=== PATIENT | female | born 2000 | race Two or more races ===

== ENCOUNTER 2024-04-09 12:02 | Inpatient (IN) | payer MEDICAID ==
[2024-04-09] VITALS (17 sets, daily range): BP systolic 120–164; BP diastolic 60–99; PULSE 68–103; RESP 16–19; TEMP 97.6–97.9; O2SAT 96–100
[~2024-04-09] VITALS: Ht 170.2 cm; Wt 63.2 kg
[~2024-04-09 12:02] MED LIST: LABETALOL HCL 5 MG/ML ML 20ML VIAL IV ONE
[2024-04-09] MEDS: MAGNESIUM SULFATE 40MG/ML 1,000 ML IV ONE (12:24)
[2024-04-09] MEDS: MAGNESIUM SULFATE 100 ML IV ONE ×2 (12:30→12:51)
[2024-04-09] MEDS ORDERED: PHISODERM TOP SOLN 240ML BTL TOP PRN (12:45)
[2024-04-09] MEDS: LACT. RINGERS/OXYTOCIN 20UNITS 500 ML IV ONE ×2 (12:45→13:15)
[2024-04-09] MEDS ORDERED: WITCH HAZEL-GLYCERIN PAD TOP PRN (12:45)
[2024-04-09] MEDS ORDERED: LIDOCAINE 2%HCL (LOCAL ANESTH.) INJ 20ML MDV IJ PRN (12:45)
[2024-04-09] MEDS ORDERED: DERMOPLAST 60ML BOTTLE TOP PRN (12:45)
[2024-04-09] MEDS: ONDANSETRON HCL 4 MG/2 ML VIAL ONE (12:55)
[2024-04-09] MEDS: ONDANSETRON HCL 4 MG/2 ML VIAL IV ONE (13:00)
[2024-04-09] MEDS: MAGNESIUM SULFATE 40MG/ML 1,000 ML IV SCH (13:14)
[2024-04-09 13:16] LABS: Basophils # (auto) 0 10 ^3/uL (0-0.2); Basophils % (auto) 0.4 % (0.0-2.0); Eosinophils # (auto) 0.1 10 ^3/uL (0-0.8); Eosinophils % (auto) 0.4 % (0.0-7.0); Hematocrit 30.5 % (36.0-46.0); Hemoglobin 9.8 g/dL (12.2-16.2); Lymphocytes % (auto) 16.2 % (10.0-50.0); Mean Corpuscular Hemoglobin 27.4 pg (28.0-32.0); Mean Corpuscular Hgb Conc. 32.2 g/dL (32.0-36.0); Monocytes # (auto) 0.9 10 ^3/uL (0-1.3); Monocytes % (auto) 6.9 % (0.0-12.0); Neutrophils # (auto) 9.6 10 ^3/uL (1.6-8.6); Neutrophils % (auto) 76.1 % (37.0-80.0); Nucleated Red Blood Cells % 0.1 %; Platelet Count (auto) 325 10^3/uL (140-450); Red Blood Cells 3.59 10^6/uL (4.0-5.20); Red Cell Distribution Width 15.5 % (11.8-14.3); White Blood Cell 12.6 10^3/uL (4.4-10.8)
[2024-04-09 13:19] LABS: Urine Bacteria MOD /hpf (None Seen); Urine Blood Negative /uL (Negative); Urine Budding Yeast OCCASIONAL /hpf (None Seen); Urine Clarity Turbid (Clear); Urine Color Colorless (Yellow); Urine Protein, UAD Negative (Negative); Urine Specific Gravity 1.007 (1.001-1.035); Urine Squamous Epithelial Cell MOD /hpf (<5); Urine Urobilinogen Normal (Negative); Urine WBC 3 /HPF (0-5); Urine pH 6.5 (5.0-9.0)
[2024-04-09] MEDS ORDERED: MORPHINE SULF PF 5 MG/10 ML VIAL ONE (13:23)
[2024-04-09] MEDS ORDERED: fentaNYL CITRATE 100 MCG/2 ML VL ONE (13:23)
[2024-04-09] MEDS ORDERED: GLYCOPYRROLATE 0.2 MG/ML 1ML VIAL ONE (13:26)
[2024-04-09] MEDS ORDERED: ONDANSETRON HCL 4 MG/2 ML VIAL ONE (13:26)
[2024-04-09] MEDS ORDERED: oxyTOCIN 10 UNIT/ML 10ML VIAL ONE (13:26)
[2024-04-09] MEDS ORDERED: ceFAZolin 1GM VL ONE (13:26)
[2024-04-09 13:28] LABS: Albumin 4.1 g/dL (3.2-4.8); Anion Gap 10 (5-15); Aspartate Aminotransferase 14 U/L (13-40); Calcium 9.5 mg/dL (8.7-10.4); Carbon Dioxide 21 mmol/L (20-31); Chloride 106 mmol/L (98-107); Glucose 88 mg/dL (74-106); INR 0.92 (0.9-1.15); Partial Thromboplastin Time 27.6 SEC (24.5-34.5); Potassium 3.8 mmol/L (3.5-5.1); Prothrombin Time 9.8 sec (9.3-11.8); Sodium 137 mmol/L (136-145); Total Protein 6.8 g/dL (5.7-8.2); Uric Acid 3.5 mg/dL (3.1-7.8)
[2024-04-09 13:29] LABS: Bilirubin, Total 1.1 mg/dL (0.2-1.0)
[2024-04-09 13:34] LABS: Amphetamine Screen, Urine Neg (NEGATIVE); Barbiturate Scree,Urine Neg (NEGATIVE); Benzodiazephine Screen, Urine Neg (NEGATIVE); Cannabinoid Screen, Urine Neg (NEGATIVE); Cocaine Screen, Urine Neg (NEGATIVE); Opiate Scree,Urine Neg (NEGATIVE); Phencyclidine Screen, Urine Neg (NEGATIVE)
[2024-04-09 13:46] LABS: Alanine Aminotransferase < 9 U/L (7-40); Alkaline Phosphatase 230 U/L (46-116); BUN/Creatinine Ratio 11.9 (10.0-20.0); Blood Urea Nitrogen < 5 mg/dL (9-23)
[2024-04-09] MEDS ORDERED: DexAMETHasone SOD PHOS 10MG/1ML VIAL INJ IV PRN (14:45)
[2024-04-09] MEDS ORDERED: ONDANSETRON HCL 4 MG/2 ML VIAL IV PRN (14:45)
[2024-04-09] MEDS ORDERED: NALOXONE HCL 0.4 MG/ML VIAL IV PRN (14:45)
--- NOTE | 2024-04-09 15:01 | DVHPN2 ---
Visit Coding OBGYN Date of Service: Apr 09, 2024 Billing Provider: HARRY HARDWICK DO PERINATAL INSTRUCTOR Common Visit Codes: [id number] OBS CARE (HIGH) PERINATAL INSTRUCTOR Procedure Codes: [id number] OB CARE, DEL HARRY HARDWICK DO Apr 09, 2024 15:01
--- NOTE | 2024-04-09 15:07 | DVHHP2 ---
OB CC & HPI Date Date of Admission: Apr 09, 2024 Patient Identification: : 1 Para: 0 EGA: 39.2 Chief Complaints: Reason for admission: section Indication for induction: medical complication Other reason for admission: Pre-eclampsia with severe features (severe HTN) History of Present Complaints 23y G1Po sent to L&D by Dr. Nicolas's office due to severely elevated BP's in office today. Patient denies headache, scotomata, epigastric pain. Denies drug use. has been uncomplicated. Past Medical History Cardiac: No pertinent Hx Pulmonary: No pertinent Hx Central Nervous System: No pertinent Hx GI: No pertinent Hx Hemotology/Oncology: No pertinent Hx Hepatobiliary: No pertinent Hx Psychiatric: No pertinent Hx Musculoskeletal: No pertinent Hx Rheumotologic: No pertinent Hx Infectious Disease: No peritnent Hx ENT: No pertinent Hx Renal/: No pertinent Hx Endocrine: No pertinent Hx Dermatology: No pertinent Hx Past Surgical History: No pertinent Hx OB History OB History Care: None Ultrasounds: Normal mid trimester US Obstetrical Complications: Pre-eclampsia Allergies: Coded Allergies: NO KNOWN ALLERGIES (Unverified , 04/09/24) Current Medications Current Medications Medications (Trade) Dose Ordered Sig/Yumiko Route PRN Reason Start Time Stop Time Status Last Admin Magnesium Sulfate 1,000 ml @ 50 mls/hr Q20H IV 04/09/24 12:30 04/09/24 13:14 Lactated Ringer's 1,000 ml @ 75 mls/hr [id number] IV 04/09/24 12:30 Witch Ember (Tucks) 1 pad PRN PRN TOP PERINEAL AREA DISCOMFORT 04/09/24 12:45 Sodium Lauryl Sulfate (Phisoderm) 240 ml PRN PRN TOP PERINEAL AREA DISCOMFORT 04/09/24 12:45 Benzocaine (Dermoplast) 1 applic PRN PRN TOP PERINEAL AREA DISCOMFORT 04/09/24 12:45 Lidocaine HCl (Xylocaine) 20 ml ONCE PRN IJ PERINEAL AREA DISCOMFORT 04/09/24 12:45 Diphenhydramine HCl (Benadryl Injection) 25 mg Q4HP PRN IV FOR ITCHING 04/09/24 14:45 UNV Ondansetron HCl (Zofran) 4 mg Q4HP PRN IV NAUSEA / VOMITING 04/09/24 14:45 UNV Naloxone HCl (Narcan) 0.2 mg Q5M PRN IV For respirations < than 10/min 04/09/24 14:45 04/09/24 14:51 UNV Dexamethasone Sodium Phosphate (Decadron Injection) 10 mg SHEAR GRINDER OPERATOR PRN IV FOR ITCHING 04/09/24 14:45 04/09/24 14:46 UNV Ketorolac Tromethamine (Toradol Injection) 30 mg Q6HP PRN IV MODERATE PAIN (4-6 PAIN SCALE) 04/09/24 14:45 04/14/24 14:44 UNV Review of Systems Constitutional: No symptom reported Ears, Nose, & Throat: No symptom reported Eyes: No symptom reported Pulmonary/Respiratory: No symptom reported Cardiovascular: No symptom reported Gastrointestinal: No symptom reported Genitourinary: No symptom reported Musculoskeletal: No symptom reported Skin: No symptom reported Psychiatric: No symptom reported Endocrine: No symptom reported Hemotologic/Lymphatic: No symptom reported OB Admission Exam Physical Exam Vitals: Vital Signs Date Time Temp Pulse Resp B/P (MAP) Pulse Ox O2 Delivery O2 Flow Rate FiO2 04/09/24 14:41 Nasal Cannula 3.0 99 HEENT: NCAT Heart: Rhythm Normal Lungs: Clear Abdomen: Gravid Extremities: Normal Reflexes: Normal Pelvic Exam: Deferred Heart Rate: 130's Accelerations: Accelerations Present Decelerations: No Decelerations Manager Privacy Variability: Average (6-25) Contractions on Admission: >10 Minutes Apart Intensity: Mild OB Plan Plan Admitting Diagnosis: 23yo G1Po, IUP 39+ weeks, Severe Pre Eclampsia by BP criteria Plan: Section Other Plan: Remote from delivery Magnesium sulfate and IV Labetalol protocol initiated for severe HTN urgency, difficult to control BP Patient with unfavorable cervix Consented for C/Section delivery due to indications R/B/A of surgery discussed and informed consent obtained. Visit Coding OBGYN Date of Service: Apr 09, 2024 Billing Provider: HARRY HARDWICK DO [facility] PHYSICIAN Common Visit Codes: [id number] OBS CARE (HIGH) HARRY HARDWICK DO Apr 09, 2024 15:07
--- NOTE | 2024-04-09 15:12 | DVHOP ---
DATE OF SURGERY: 04/09/2024 PREOPERATIVE DIAGNOSES: * Term intrauterine at 39+ weeks. * Severe preeclampsia. FINAL DIAGNOSES: * Term intrauterine at 39+ weeks. * Severe preeclampsia. PROCEDURE PERFORMED: Non-elective primary low transverse section via Pfannenstiel skin incision. SURGEON: Rajesh Malave DO DIRECTOR OF TRAINING: Deborah Hayward M.D. PGY-1, [facility]. TYPE OF ANESTHESIA: Spinal. ANESTHESIOLOGIST: Sujey Crum M.D. DESCRIPTION OF FINDINGS: Delivery of a liveborn female, cephalic presentation, occiput posterior, weight 8 pounds 2 ounces, scores of 7 and 8, clear amniotic fluid. Normal placenta, 3-vessel umbilical cord, two-layer uterine closure. Normal bilateral fallopian tubes, ovaries and placenta as described above. TECHNICAL PROCEDURE: After informed consent was obtained, the patient was taken to the operating room where her spinal anesthesia was found to be adequate. She was placed in the supine position with a slight leftward tilt. She was sterilely prepped and draped in the usual sterile fashion. A Pfannenstiel skin incision was made with the scalpel. The incision was developed sharply to the underlying layer of fascia and peritoneum. Entry into the peritoneal cavity was performed bluntly. The peritoneal incision was extended superiorly and inferiorly with good visualization of the bladder. The Bryan O retractor was placed into the incision. Using a second scalpel, the lower uterine segment was incised in a low transverse fashion and incision extended laterally. The amniotic fluid membranes were ruptured. The fluid was clear. The baby was found to be in the direct occiput posterior position. The baby was delivered atraumatically. After delivery of the infant, the nose and mouth were suctioned. The cord was clamped and cut and the baby handed off to waiting pediatric team. Cord blood and cord gas were obtained. The placenta was spontaneously delivered. The uterus was exteriorized and cleared of all clots and debris using moist laparotomy sponges. The uterine incision was repaired with #1 Vicryl in continuous running locking fashion. A second layer of #1 PDS was used to imbricate the uterine incision with good tissue approximation and hemostasis obtained. The cul-de-sac and pericolic gutters were cleared of all clots and debris. The uterus was returned to the abdomen. Hemostasis was confirmed. The abdomen was irrigated with sterile water. At this point, all instrumentation was removed from the patient's abdomen. The peritoneal layer was not closed. The rectus fascia was closed using #1 Stratafix PDS. It was closed in continuous running fashion with good tissue approximation. The subcutaneous tissue was approximated in interrupted fashion using 3-0 plain gut and the skin closed in subcuticular fashion using 3-0 Monocryl with a Stratafix suture. The Sylke sterile dressing was then placed over the incision. The patient tolerated the procedure well. Sponge, lap and needle counts were correct x4. INTRAOPERATIVE COMPLICATIONS: None. ESTIMATED BLOOD LOSS: 500 mL POSTOPERATIVE CONDITION: Stable. SPECIMENS: Cord blood, cord gas and placenta. MEDICATIONS: The patient received 2 grams of Ancef prior to skin incision and IV magnesium sulfate prior to delivery and IV labetalol for severe hypertension. PROGNOSIS: Guarded due to severe preeclampsia. DO LORETO [place] TID: [id number] RECEIPT: [id number]
[2024-04-09] MEDS: LACTATED RINGER'S 1,000 ML IV SCH (16:07)
[2024-04-09] MEDS: diphenhdrAMINE HCL 50 MG/1 ML VL IV PRN (16:27)
[2024-04-09] MEDS: LABETALOL HCL 200 MG TAB PO PRN (17:35)
[2024-04-09] MEDS: KETOROLAC TROMETH 30 MG/ML 1ML VIAL IV PRN (17:41)
[2024-04-09] MEDS: LABETALOL HCL 200 MG TAB PO ONE (19:15)
[2024-04-09] MEDS: LABETALOL HCL 200 MG TAB ONE (19:37)
[2024-04-09 23:01] LABS: Protein, Urine 18.5 mg/dL (1-14)
[2024-04-09 23:04] LABS: Creatinine, Urine 53.61 mg/dL (30.0-125.0); Urine Protein/Creatinine Ratio 0.35
[2024-04-09] MEDS: ACETAMINOPHEN IV 1000 MG/100ML (10MG/ML) IV PRN (23:39)
[2024-04-10] VITALS (17 sets, daily range): BP systolic 96–170; BP diastolic 41–90; PULSE 77–93; RESP 16–18; TEMP 97.7–98.3; O2SAT 97–100
[2024-04-10 06:41] LABS: Basophils # (auto) 0 10 ^3/uL (0-0.2); Basophils % (auto) 0.1 % (0.0-2.0); Eosinophils # (auto) 0 10 ^3/uL (0-0.8); Hemoglobin 8.4 g/dL (12.2-16.2); Red Cell Distribution Width 15.7 % (11.8-14.3)
[2024-04-10 06:44] LABS: Hematocrit 25.9 % (36.0-46.0); Lymphocytes # (auto) 1.9 10 ^3/uL (0.4-5.4); Lymphocytes % (auto) 8.3 % (10.0-50.0); Mean Corpuscular Hemoglobin 27.7 pg (28.0-32.0); Mean Corpuscular Hgb Conc. 32.4 g/dL (32.0-36.0); Mean Corpuscular Volume 85.6 fL (80.0-100.0); Monocytes % (auto) 8.8 % (0.0-12.0); Neutrophils # (auto) 18.6 10 ^3/uL (1.6-8.6); Neutrophils % (auto) 82.8 % (37.0-80.0); Platelet Count (auto) 337 10^3/uL (140-450); Red Blood Cells 3.02 10^6/uL (4.0-5.20); White Blood Cell 22.5 10^3/uL (4.4-10.8)
[2024-04-10 07:07] LABS: Albumin 3.6 g/dL (3.2-4.8); Anion Gap 10 (5-15); Aspartate Aminotransferase 19 U/L (13-40); Carbon Dioxide 21 mmol/L (20-31); Chloride 101 mmol/L (98-107); Glucose 104 mg/dL (74-106); Potassium 4.2 mmol/L (3.5-5.1)
[2024-04-10 07:08] LABS: Alanine Aminotransferase < 9 U/L (7-40); Alkaline Phosphatase 189 U/L (46-116); BUN/Creatinine Ratio 8.2 (10.0-20.0); Bilirubin, Total 0.8 mg/dL (0.2-1.0); Blood Urea Nitrogen < 5 mg/dL (9-23); Calcium 7.9 mg/dL (8.7-10.4); Sodium 132 mmol/L (136-145)
[2024-04-10] MEDS ORDERED: ACETAMINOPHEN IV 1000 MG/100ML (10MG/ML) IV PRN ×2 (07:30→09:15)
--- NOTE | 2024-04-10 07:33 | DVHPN2 ---
Progress Note Date Seen: Apr 10, 2024 Subjective POD#1 s/p 1' C/S for pre-eclampsia w/ severe features S: feels better. No epigastric pain, visual changes or headache.Lochia mild vital signs Vital Sign Date Time Temp Pulse Resp B/P (MAP) Pulse Ox O2 Delivery O2 Flow Rate FiO2 04/10/24 06:52 98.3 77 18 135/75 (95) 99 98.3 04/10/24 06:50 Room Air 04/09/24 14:35 0 04/09/24 14:35 99 Total Intake and Output 04/09/24 04/09/24 04/10/24 15:00 23:00 07:00 Output Total 2150 ml 1525 ml Balance -2150 ml -1525 ml medications Current Medications Medications Dose Ordered Sig/Yumiko Route Start Time Stop Time Status Last Admin Dose Admin Magnesium Sulfate 1,000 ml @ 50 mls/hr Q20H IV 04/09/24 12:30 04/09/24 13:14 50 MLS/HR Lactated Ringer's 1,000 ml @ 75 mls/hr [id number] IV 04/09/24 12:30 04/09/24 16:07 75 MLS/HR Witch Ember 1 pad PRN PRN TOP 04/09/24 12:45 Sodium Lauryl Sulfate 240 ml PRN PRN TOP 04/09/24 12:45 Benzocaine 1 applic PRN PRN TOP 04/09/24 12:45 Lidocaine HCl 20 ml ONCE PRN IJ 04/09/24 12:45 Diphenhydramine HCl 25 mg Q4HP PRN IV 04/09/24 14:45 04/09/24 16:27 25 MG Ondansetron HCl 4 mg Q4HP PRN IV 04/09/24 14:45 Ketorolac Tromethamine 30 mg Q6HP PRN IV 04/09/24 14:45 04/14/24 14:44 04/10/24 06:20 30 MG Labetalol HCl 300 mg Q12HR@0800,2000 PO 04/10/24 08:00 Acetaminophen 1,000 mg ONCE PRN IV 04/09/24 23:30 04/10/24 23:29 04/09/24 23:39 1,000 MG Acetaminophen 1,000 mg [id number] PRN IV 04/10/24 07:30 04/10/24 07:31 UNV laboratory and microbiology Laboratory Tests 04/10/24 06:03 Test 04/10/24 06:03 Range/Units Serum Glucose 104 74-106 mg/dL Objective O: AFVSS Chest: heart and lung sounds normal. Abd soft, non-tender, fundus firm, BS, no rebound or guarding, Incision - dressing and incision clean, dry, intact Ext Neg Homans, Non-tender, edema Lochia - minimal Labs Reviewed Assessment/Plan POD#1 s/p 1' C/S for severe Pre-E BP's controlled on oral Labetalol Plan: Continue MagSO4 until x 24hr Supportive care SCD's Regular diet. Plan discussed with: Patient Visit Coding OBGYN Date of Service: Apr 10, 2024 Billing Provider: HARRY HARDWICK DO SCHOLASTIC APTITUDE TEST GRADER Common Visit Codes: [id number] INP/OBS CARE(HIGH) HARRY HARDWICK DO Apr 10, 2024 07:33
[2024-04-10] MEDS ORDERED: IRON SUCROSE COMPLEX 110 ML IV SCH (07:45)
[2024-04-10] MEDS ORDERED: LABETALOL HCL 200 MG TAB PO SCH (08:00)
[2024-04-10 08:07] LABS: RPR Non Reactive (Non Reactive)
[2024-04-10] MEDS: LABETALOL HCL 200 MG TAB PO SCH (09:01)
[2024-04-10] MEDS: IRON SUCROSE COMPLEX 110 ML IV SCH (09:54)
[2024-04-10] MEDS: ACETAMINOPHEN IV 1000 MG/100ML (10MG/ML) IV PRN (09:58)
[2024-04-10 12:07] LABS: Rubella Antibodies, IgG 2.07 index (Immune >0.99)
[2024-04-10] MEDS: HYDROcodone-ACET 5/325MG TAB PO PRN (13:36)
[2024-04-10] MEDS: IBUPROFEN 800 MG TAB PO PRN (18:26)
[2024-04-10] MEDS: SIMETHICONE 80 MG CHEWABLE TABLET PO SCH (18:28)
[2024-04-10] MEDS: DOCUSATE SOD 100 MG CAP PO SCH (22:27)
[2024-04-10] MEDS: hydrALAZINE HCL 20 MG/ML VL IV PRN (23:10)
[2024-04-11 03:12] VITALS: BP 155/80; PULSE 82; RESP 18; TEMP 98.2; O2SAT 98
--- NOTE | 2024-04-11 06:29 | DVHPN2 ---
Progress Note Date Seen: Apr 11, 2024 Subjective S: Lochia minimal. Advancing diet well tolerated. Ambulating and voiding well w/o feeling dizzy or lightheaded. Pain relieved with analgesics. Passing flatus but no BM yet. Formula feeding, no breast fullness or engorgement vital signs Vital Sign Date Time Temp Pulse Resp B/P (MAP) Pulse Ox O2 Delivery O2 Flow Rate FiO2 04/11/24 03:12 98.2 82 18 155/80 (105) 98 98.2 04/10/24 18:30 Room Air 04/09/24 14:35 0 04/09/24 14:35 99 Total Intake and Output 04/10/24 04/10/24 04/11/24 15:00 23:00 07:00 Intake Total 240 ml Output Total 600 ml 540 ml 800 ml Balance -600 ml -300 ml -800 ml medications Current Medications Medications Dose Ordered Sig/Yumiko Route Start Time Stop Time Status Last Admin Dose Admin Pippacynthia Ember 1 pad PRN PRN TOP 04/09/24 12:45 Sodium Lauryl Sulfate 240 ml PRN PRN TOP 04/09/24 12:45 Benzocaine 1 applic PRN PRN TOP 04/09/24 12:45 Labetalol HCl 300 mg Q12HR@0800,2000 PO 04/10/24 08:00 04/10/24 19:15 Iron Sucrose 110 ml @ 110 mls/hr DAILY@1200 IV 04/10/24 09:30 04/12/24 12:59 04/10/24 09:54 Docusate Sodium 100 mg Q12HR PO 04/10/24 22:00 04/10/24 22:27 Dimethicone 80 mg QID PO 04/10/24 18:00 04/11/24 05:31 Ibuprofen 800 mg Q8HP PRN PO 04/10/24 13:15 04/11/24 02:43 Acetaminophen/ Hydrocodone Bitart 1 tab Q4HPRN PRN PO 04/10/24 13:15 Acetaminophen/ Hydrocodone Bitart 2 tab Q4HPRN PRN PO 04/10/24 13:15 04/11/24 04:41 Hydralazine HCl 5 mg Q20MP PRN IV 04/10/24 23:00 04/10/24 23:39 laboratory and microbiology Laboratory Tests 04/10/24 06:03 Test 04/10/24 06:03 Range/Units Serum Glucose 104 74-106 mg/dL Objective O: A&O x3 NAD. Afebrile, VSS Chest: heart and lung sounds normal. Breasts: Nipples intact w/o cracks or soreness Abdomen: normal BS, soft, non-tender, no rebound or guarding, fundus firm @ U- 1, Lower abdominal Incision site with Sylke on, same clean, dry and intact. No edema, erythema or induration Extremities: no edema or tenderness Lochia - minimal Assessment/Plan A/P: 23 yo now Post operative & ppd #2 s/p Primary Section for Severe pre E. Anemia. BP controlled with Labetalol doing well. Blood Type: O Rh: Positive Formula feeding Rubella Immune Plan Pain control with oral medications Bowel regimen: Increase fluid intake and fiber in diet, Laxative PRN Encourage ambulation Supportive care Plan discussed with: Patient Visit Coding OBGYN Date of Service: Apr 11, 2024 Billing Provider: MC SMITH CNM MICROBIOLOGY COORDINATOR Common Visit Codes: [id number] INP/OBS CARE(HIGH) MC SMITH CNM Apr 11, 2024 06:29
[2024-04-11 07:15] VITALS: BP 143/82; PULSE 81; RESP 18; TEMP 98.2; O2SAT 96
[2024-04-11] MEDS: FERROUS SULFATE 325mg EC TAB PO SCH (10:42)
[2024-04-11 10:44] VITALS: BP 131/68; PULSE 82; RESP 18; TEMP 98.2; O2SAT 96
[2024-04-11 19:00] VITALS: BP 168/94; PULSE 94; RESP 16; TEMP 98.5; O2SAT 99
[2024-04-11 20:00] VITALS: BP 154/79
[2024-04-11 23:00] VITALS: BP 154/86; PULSE 95; RESP 16; TEMP 98.7; O2SAT 96
[2024-04-12] VITALS (9 sets, daily range): BP systolic 136–177; BP diastolic 65–104; PULSE 79–97; RESP 16–18; TEMP 97.9–99; O2SAT 97–99
--- NOTE | 2024-04-12 04:21 | DVHPN2 ---
Progress Note Date Seen: Apr 12, 2024 Subjective S: Lochia minimal. Regular diet well tolerated. Ambulating and voiding well w/o feeling dizzy or lightheaded. Pain relieved with oral analgesics. Passing flatus but no BM yet. Formula feeding; reports no breast fulness or engorgement PP BCM Plan: Oral contraceptive pill - will start after 8 weeks . Partner in [place]. Desires and requests to be discharged today vital signs Vital Sign Date Time Temp Pulse Resp B/P (MAP) Pulse Ox O2 Delivery O2 Flow Rate FiO2 04/11/24 23:00 98.7 95 16 154/86 (108) 96 98.7 04/11/24 19:00 Room Air Total Intake and Output 04/11/24 04/11/24 04/12/24 15:00 23:00 07:00 Intake Total 240 ml 300 ml Balance 240 ml 300 ml medications Current Medications Medications Dose Ordered Sig/Yumiko Route Start Time Stop Time Status Last Admin Dose Admin [place] 1 pad PRN PRN TOP 04/09/24 12:45 Sodium Lauryl Sulfate 240 ml PRN PRN TOP 04/09/24 12:45 Benzocaine 1 applic PRN PRN TOP 04/09/24 12:45 Labetalol HCl 300 mg Q12HR@0800,2000 PO 04/10/24 08:00 04/11/24 19:53 300 MG Docusate Sodium 100 mg Q12HR PO 04/10/24 22:00 04/11/24 19:49 100 MG Dimethicone 80 mg QID PO 04/10/24 18:00 04/11/24 19:49 80 MG Ibuprofen 800 mg Q8HP PRN PO 04/10/24 13:15 04/11/24 23:41 800 MG Acetaminophen/ Hydrocodone Bitart 1 tab Q4HPRN PRN PO 04/10/24 13:15 Acetaminophen/ Hydrocodone Bitart 2 tab Q4HPRN PRN PO 04/10/24 13:15 04/11/24 19:50 2 TAB Hydralazine HCl 5 mg Q20MP PRN IV 04/10/24 23:00 04/10/24 23:39 5 MG Ferrous Sulfate 325 mg BIDWM PO 04/11/24 11:00 04/11/24 19:49 325 MG laboratory and microbiology Laboratory Tests 04/10/24 06:03 Test 04/10/24 06:03 Range/Units Serum Glucose 104 74-106 mg/dL Objective O: A&O x3 NAD. Afebrile, BP not in well controlled range on Labetalol 300mg twice daily, other vital signs stable Chest: heart and lung sounds normal. Breasts: Nipples intact w/o cracks or soreness Abdomen: normal BS, soft, non-tender, no rebound or guarding, fundus firm @ U- 1, Lower abdominal Incision site with Sylke on, same clean, dry and intact. No edema, erythema or induration Extremities: no edema or tenderness Lochia - minimal Assessment/Plan 23 yo now Post operative & ppd #3 s/p Primary Section. Pre Eclampsia, Hypertension, condition guarded; BP still elevated. Anemia Blood Type: A Rh: Positive Formula feeding Rubella Immune Pain control with oral medications Bowel regimen: Increase fluid intake and fiber in diet, Laxative PRN Discharge plan: To be re- assessed by MD whose findings will determine fitness for discharge Plan discussed with: Patient Visit Coding OBGYN Date of Service: Apr 12, 2024 Billing Provider: MC SMITH CNM RETAIL WIRELESS ASSOCIATE Common Visit Codes: [id number] INP/OBS CARE(HIGH) MC SMITH CNM Apr 12, 2024 04:21
[2024-04-12] MEDS: NIFEdipine ER 30 MG TAB PO SCH (10:05)
[2024-04-12] MEDS ORDERED: HYDR-4902 PO (16:22)
[2024-04-12] MEDS ORDERED: IBUP-1455 PO (16:22)
[2024-04-12] MEDS ORDERED: NIFE1TAB31 PO (16:22)
[2024-04-12] MEDS ORDERED: FER325T PO (16:22)
[2024-04-12] MEDS ORDERED: DOCU-265 PO (16:22)
[2024-04-12] MEDS ORDERED: LABE200T10 PO (16:22)
[2024-04-12 17:28] LABS: Basophils # (auto) 0 10 ^3/uL (0-0.2); Basophils % (auto) 0.3 % (0.0-2.0); Eosinophils # (auto) 0.2 10 ^3/uL (0-0.8); Eosinophils % (auto) 1.5 % (0.0-7.0); Hematocrit 30.8 % (36.0-46.0); Hemoglobin 9.8 g/dL (12.2-16.2); Lymphocytes # (auto) 2.6 10 ^3/uL (0.4-5.4); Lymphocytes % (auto) 18.8 % (10.0-50.0); Mean Corpuscular Hemoglobin 27.7 pg (28.0-32.0); Mean Corpuscular Hgb Conc. 31.9 g/dL (32.0-36.0); Mean Corpuscular Volume 86.7 fL (80.0-100.0); Monocytes # (auto) 0.8 10 ^3/uL (0-1.3); Monocytes % (auto) 5.5 % (0.0-12.0); Neutrophils # (auto) 10.4 10 ^3/uL (1.6-8.6); Neutrophils % (auto) 73.9 % (37.0-80.0); Nucleated Red Blood Cells % 0.1 %; Platelet Count (auto) 453 10^3/uL (140-450); Red Blood Cells 3.55 10^6/uL (4.0-5.20); Red Cell Distribution Width 15.8 % (11.8-14.3); White Blood Cell 14.1 10^3/uL (4.4-10.8)
[2024-04-12 17:45] LABS: Alanine Aminotransferase 10 U/L (7-40); Albumin 4.1 g/dL (3.2-4.8); Anion Gap 11 (5-15); Aspartate Aminotransferase 20 U/L (13-40); BUN/Creatinine Ratio 8.2 (10.0-20.0); Calcium 9.6 mg/dL (8.7-10.4); Carbon Dioxide 22 mmol/L (20-31); Chloride 104 mmol/L (98-107); Potassium 3.6 mmol/L (3.5-5.1); Sodium 137 mmol/L (136-145); Total Protein 6.7 g/dL (5.7-8.2)
[2024-04-12 17:46] LABS: Bilirubin, Total 0.7 mg/dL (0.2-1.0)
[2024-04-12 18:24] LABS: Alkaline Phosphatase 167 U/L (46-116); Blood Urea Nitrogen 5 mg/dL (9-23); Glucose 128 mg/dL (74-106)
[2024-04-13] VITALS (8 sets, daily range): BP systolic 139–187; BP diastolic 85–110; PULSE 78–107; RESP 17–18; TEMP 97.7–98.7; O2SAT 96–100
--- NOTE | 2024-04-13 03:37 | DVHPN2 ---
Progress Note Date Seen: Apr 13, 2024 Subjective POD#4 s/p 1' C/S for severe HTN (pre-eclampsia) S: Patient feels well. Denies any symptoms of HTN, no SOB/CP, visual changes vital signs Vital Sign Date Time Temp Pulse Resp B/P (MAP) Pulse Ox O2 Delivery O2 Flow Rate FiO2 04/12/24 22:30 98.4 95 18 136/80 (98) 98 98.4 04/12/24 19:00 Room Air medications Current Medications Medications Dose Ordered Sig/Yumiko Route Start Time Stop Time Status Last Admin Dose Admin Morris Blakeel 1 pad PRN PRN TOP 04/09/24 12:45 Sodium Lauryl Sulfate 240 ml PRN PRN TOP 04/09/24 12:45 Benzocaine 1 applic PRN PRN TOP 04/09/24 12:45 Labetalol HCl 300 mg Q12HR@0800,2000 PO 04/10/24 08:00 04/12/24 20:04 300 MG Docusate Sodium 100 mg Q12HR PO 04/10/24 22:00 04/12/24 22:38 100 MG Dimethicone 80 mg QID PO 04/10/24 18:00 04/12/24 22:38 80 MG Ibuprofen 800 mg Q8HP PRN PO 04/10/24 13:15 04/12/24 14:27 800 MG Acetaminophen/ Hydrocodone Bitart 1 tab Q4HPRN PRN PO 04/10/24 13:15 Acetaminophen/ Hydrocodone Bitart 2 tab Q4HPRN PRN PO 04/10/24 13:15 04/12/24 22:39 2 TAB Hydralazine HCl 5 mg Q20MP PRN IV 04/10/24 23:00 04/12/24 05:14 5 MG Ferrous Sulfate 325 mg BIDWM PO 04/11/24 11:00 04/12/24 22:38 325 MG Nifedipine 30 mg DAILY PO 04/12/24 10:00 04/12/24 10:05 30 MG laboratory and microbiology Laboratory Tests 04/12/24 17:01 Test 04/12/24 17:01 Range/Units Serum Glucose 128 H 74-106 mg/dL Objective O: AFVSS Chest: heart and lung sounds normal. Abd soft, non-tender, fundus firm, BS, no rebound or guarding, Incision - dressing and incision clean, dry, intact Ext Neg Homans, Non-tender, edema Lochia - minimal Labs reviewed Assessment/Plan POD#4 s/p 1' C/S for severe pre-eclampsia BP's better controlled in last 24hr with addition of Nifedipine 30mg XL Plan: Patient is stable for discharge home today Continue Labetalol PO and Nifedipine PO F/U in office in 1 wk. Plan discussed with: Patient Visit Coding OBGYN Date of Service: Apr 13, 2024 Billing Provider: HARRY HARDWICK DO SUGAR PRESSER Common Visit Codes: [id number] DISCH DAY <30MIN HARRY HARDWICK DO Apr 13, 2024 03:37
--- NOTE | 2024-04-13 03:41 | DVHDS2 ---
Discharge Summary Date of Admission Apr 09, 2024 at 12:02 Date of Discharge: Apr 13, 2024 Admitting Diagnosis Severe Pre-eclampsia, Term Labs/Diagnostic Data: Laboratory Results Test 04/12/24 17:01 04/10/24 06:03 04/09/24 12:40 White Blood Count 14.1 10^3/uL (4.4-10.8) Red Blood Count 3.55 10^6/uL (4.0-5.20) Hemoglobin 9.8 g/dL (12.2-16.2) Hematocrit 30.8 % (36.0-46.0) Mean Corpuscular Volume 86.7 fL (80.0-100.0) Mean Corpuscular Hemoglobin 27.7 pg (28.0-32.0) Mean Corpuscular Hemoglobin Concent 31.9 g/dL (32.0-36.0) Red Cell Distribution Width 15.8 % (11.8-14.3) Platelet Count 453 10^3/uL (140-450) Mean Platelet Volume 7.3 fL (6.9-10.8) Neutrophils (%) (Auto) 73.9 % (37.0-80.0) Lymphocytes (%) (Auto) 18.8 % (10.0-50.0) Monocytes (%) (Auto) 5.5 % (0.0-12.0) Eosinophils (%) (Auto) 1.5 % (0.0-7.0) Basophils (%) (Auto) 0.3 % (0.0-2.0) Neutrophils # (Auto) 10.4 10 ^3/uL (1.6-8.6) Lymphocytes # (Auto) 2.6 10 ^3/uL (0.4-5.4) Monocytes # (Auto) 0.8 10 ^3/uL (0-1.3) Eosinophils # (Auto) 0.2 10 ^3/uL (0-0.8) Basophils # (Auto) 0 10 ^3/uL (0-0.2) Nucleated Red Blood Cells 0.1 % Sodium Level 137 mmol/L (136-145) Potassium Level 3.6 mmol/L (3.5-5.1) Chloride Level 104 mmol/L (98-107) Carbon Dioxide Level 22 mmol/L (20-31) Anion Gap 11 (5-15) Blood Urea Nitrogen 5 mg/dL (9-23) Creatinine 0.61 mg/dL (0.550-1.02) Glomerular Filtration Rate Calc 128 mL/min (>90) BUN/Creatinine Ratio 8.2 (10.0-20.0) Serum Glucose 128 mg/dL (74-106) Calcium Level 9.6 mg/dL (8.7-10.4) Total Bilirubin 0.7 mg/dL (0.2-1.0) Aspartate Amino Transferase (AST) 20 U/L (13-40) Alanine Aminotransferase (ALT) 10 U/L (7-40) Alkaline Phosphatase 167 U/L (46-116) Total Protein 6.7 g/dL (5.7-8.2) Albumin 4.1 g/dL (3.2-4.8) Magnesium Lvl (Mg Sulfate Therapy) 5.59 mg/dL (4.0-7.1) Prothrombin Time 9.8 sec (9.3-11.8) Prothrombin Time INR 0.92 (0.9-1.15) Activated Partial Thromboplast Time 27.6 SEC (24.5-34.5) Urine Color Colorless (Yellow) Urine Clarity Turbid (Clear) Urine pH 6.5 (5.0-9.0) Urine Specific [place] 1.007 (1.001-1.035) Urine Protein Negative (Negative) Urine Ketones Negative (Negative) Urine Blood Negative /uL (Negative) Urine Nitrite Negative (Negative) Urine Bilirubin Negative (Negative) Urine Urobilinogen Normal mg/dL (Negative) Urine Leukocyte Esterase Negative /uL (Negative) Urine RBC 1 /hpf (0 - 4) Urine Microscopic WBC 3 /HPF (0-5) Urine Squamous Epithelial Cells Mod /hpf (<5) Urine Bacteria Mod /hpf (None Seen) Urine Yeast (Budding) Occasional /hpf (None Urine Creatinine 53.61 mg/dL (30.0-125.0) Urine Protein/Creatinine Ratio 0.35 Urine Glucose Normal mg/dL (Normal) Urine Total Protein 18.5 mg/dL (1-14) Uric Acid 3.5 mg/dL (3.1-7.8) Urine Opiates Screen Neg (NEGATIVE) Urine Fentanyl Screen Neg (NEGATIVE) Urine Barbiturates Screen Neg (NEGATIVE) Urine Phencyclidine Screen Neg (NEGATIVE) Urine Amphetamines Screen Neg (NEGATIVE) Urine Benzodiazepines Screen Neg (NEGATIVE) Urine Cocaine Screen Neg (NEGATIVE) Urine Cannabinoids Screen Neg (NEGATIVE) Rapid Plasma Reagin Non reactive (Non Reactive) Hepatitis B Surface Antigen Negative (Negative) Hepatitis C Antibody Negative (Negative) HIV (1&2) Antibody Negative (Negative) Rubella IgG Antibody 2.07 index (Immune >0.99) Other Laboratory Tests 04/12/24 17:01 Brief Hx & Hospital Course: Admitted for severe HTN. IV Labetalol and Magnesium sulfate drip started per protocol PIH labs negative except for elevated urine prot/cr ratio. Elected for 1' C/S delivery due to severe pre-eclampsia Delivery uneventful. BP's not controlled despite use of IV and oral Labetalol Nifedipine XL 30mg daily was started and BP's remain stable Patient doing well, asymptomatic. Operations or Procedures 1' Low transv c/section Condition at Discharge: Stable Final Diagnosis/Problems List Severe pre-eclamspia , term , delivered Secondary Diagnosis: s/p 1' C/Section Discharge Disposition: Home Discharge Instruct/Medications Diet: Regular Activity: Light activity Activity comment: Pelvic rest x 6 wk Follow Up/Referral: [address] Nicolas Discharge Statement: "Patient was advised to return to the ER or call 911 if any headaches, dizziness, shortness of breath, chest pain, abdominal pain, bleeding, fevers, or worsening of medical condition. Patient was counseled about treatment plan, medications, possible side effects, patientverbalized understanding. All questions were answered to the best of my ability. This discharge took greater then 30 minutes in planning, reviewing documentation, counseling the patient, and discussing with other team members." ASSESSMENT ASSESSMENT Assessment Visit Coding OBGYN Date of Service: Apr 13, 2024 Billing Provider: HARRY HARDWICK DO LIFE ENRICHMENT ASSISTANT Common Visit Codes: [id number] DISCH DAY <30MIN HARRY HARDWICK DO Apr 13, 2024 03:40
[2024-04-13] MEDS: LABETALOL HCL 200 MG TAB PO SCH ×2 (14:56→21:44)
[2024-04-13] MEDS: NIFEdipine ER 30 MG TAB PO ONE (15:00)
--- NOTE | 2024-04-13 16:29 | DVHINCON2 ---
Date Seen: Apr 13, [address] SWANSON Allergies: Coded Allergies: NO KNOWN ALLERGIES (Unverified , 04/09/24) Home Meds Active Scripts Nifedipine (Nifedipine Er) 30 Mg Tab, 30 MG PO DAILY for 30 Days, #30 TAB Prov:HARRY HARDWICK DO 04/12/24 Labetalol HCl (Labetalol HCl) 200 Mg Tab, 300 MG PO BID for 30 Days, #90 TAB Prov:HARRY HARDWICK DO 04/12/24 Ibuprofen Micronized (Ibuprofen) 800 Mg Tab, 800 MG PO Q8HP PRN, #30 TAB Prov:HARRY HARDWICK DO 04/12/24 Hydrocodone-Acetaminophen (Hydrocodone Bitartrate/AC 5-325 mg) 1 Tab Tab, 1 TAB PO Q6HPRN PRN for 5 Days, #20 TAB Prov:HARRY HARDWICK DO 04/12/24 Ferrous Sulfate (Ferrous Sulfate) 325 Mg Tab, 325 MG PO BID for 30 Days, #60 TAB Prov:HARRY HARDWICK DO 04/12/24 Docusate Sodium (Docusate Sodium) 100 Mg Cap, 100 MG PO BID PRN, #20 CAP Prov:HARRY HARDWICK DO 04/12/24 Current Medications Current Medications Medications (Trade) Dose Ordered Sig/Yumiko Route PRN Reason Start Time Stop Time Status Last Admin Labetalol HCl (Normodyne Tablet) 300 mg TID PO 04/13/24 14:00 04/13/24 14:56 Vital Signs Vital Signs Date Time Temp Pulse Resp B/P (MAP) Pulse Ox O2 Delivery O2 Flow Rate FiO2 04/13/24 15:00 98.5 82 18 161/105 (123) 99 98.5 04/13/24 07:00 Room Air Labs/Diagnostic Data Labs Test 04/12/24 17:01 04/10/24 06:03 04/09/24 12:40 Range/Units White Blood Count 14.1 #H 4.4-10.8 10^3/uL Red Blood Count 3.55 L 4.0-5.20 10^6/uL Hemoglobin 9.8 #L 12.2-16.2 g/dL Hematocrit 30.8 #L 36.0-46.0 % Mean Corpuscular Volume 86.7 80.0-100.0 fL Mean Corpuscular Hemoglobin 27.7 L 28.0-32.0 pg Mean Corpuscular Hemoglobin Concent 31.9 L 32.0-36.0 g/dL Red Cell Distribution Width 15.8 H 11.8-14.3 % Platelet Count 453 H 140-450 10^3/uL Mean Platelet Volume 7.3 6.9-10.8 fL Neutrophils (%) (Auto) 73.9 37.0-80.0 % Lymphocytes (%) (Auto) 18.8 10.0-50.0 % Monocytes (%) (Auto) 5.5 0.0-12.0 % Eosinophils (%) (Auto) 1.5 0.0-7.0 % Basophils (%) (Auto) 0.3 0.0-2.0 % Neutrophils # (Auto) 10.4 H 1.6-8.6 10 ^3/uL Lymphocytes # (Auto) 2.6 0.4-5.4 10 ^3/uL Monocytes # (Auto) 0.8 0-1.3 10 ^3/uL Eosinophils # (Auto) 0.2 0-0.8 10 ^3/uL Basophils # (Auto) 0 0-0.2 10 ^3/uL Nucleated Red Blood Cells 0.1 % Sodium Level 137 # 136-145 mmol/L Potassium Level 3.6 3.5-5.1 mmol/L Chloride Level 104 98-107 mmol/L Carbon Dioxide Level 22 20-31 mmol/L Anion Gap 11 5-15 Blood Urea Nitrogen 5 L 9-23 mg/dL Creatinine 0.61 0.550-1.02 mg/dL Glomerular Filtration Rate Calc 128 >90 mL/min BUN/Creatinine Ratio 8.2 L 10.0-20.0 Serum Glucose 128 H 74-106 mg/dL Calcium Level 9.6 8.7-10.4 mg/dL Total Bilirubin 0.7 0.2-1.0 mg/dL Aspartate Amino Transferase (AST) 20 13-40 U/L Alanine Aminotransferase (ALT) 10 7-40 U/L Alkaline Phosphatase 167 H 46-116 U/L Total Protein 6.7 5.7-8.2 g/dL Albumin 4.1 3.2-4.8 g/dL Magnesium Lvl (Mg Sulfate Therapy) 5.59 4.0-7.1 mg/dL Prothrombin Time 9.8 9.3-11.8 sec Prothrombin Time INR 0.92 0.9-1.15 Activated Partial Thromboplast Time 27.6 24.5-34.5 SEC Urine Color Colorless Yellow Urine Clarity Turbid H Clear Urine pH 6.5 5.0-9.0 Urine Specific [place] 1.007 1.001-1.035 Urine Protein Negative Negative Urine Ketones Negative Negative Urine Blood Negative Negative /uL Urine Nitrite Negative Negative Urine Bilirubin Negative Negative Urine Urobilinogen Normal Negative mg/dL Urine Leukocyte Esterase Negative Negative /uL Urine RBC 1 0 - 4 /hpf Urine Microscopic WBC 3 0-5 /HPF Urine Squamous Epithelial Cells Mod <5 /hpf Urine Bacteria Mod H None Seen /hpf Urine Yeast (Budding) Occasional None Seen /hpf Urine Creatinine 53.61 30.0-125.0 mg/dL Urine Protein/Creatinine Ratio 0.35 Urine Glucose Normal Normal mg/dL Urine Total Protein 18.5 H 1-14 mg/dL Uric Acid 3.5 3.1-7.8 mg/dL Urine Opiates Screen Neg NEGATIVE Urine Fentanyl Screen Neg NEGATIVE Urine Barbiturates Screen Neg NEGATIVE Urine Phencyclidine Screen Neg NEGATIVE Urine Amphetamines Screen Neg NEGATIVE Urine Benzodiazepines Screen Neg NEGATIVE Urine Cocaine Screen Neg NEGATIVE Urine Cannabinoids Screen Neg NEGATIVE Rapid Plasma Reagin Non reactive Non Reactive Hepatitis B Surface Antigen Negative Negative Hepatitis C Antibody Negative Negative HIV (1&2) Antibody Negative Negative Rubella IgG Antibody 2.07 Immune >0.99 index Assessment SEE DICTATED NOTE Plan discussed with: Patient Date of Service: Apr 13, 2024 Billing Provider: KAY GUTIERREZ MD Common Visit Codes: [id number] INP/OBS CARE (HIGH) KAY GUTIERREZ MD Apr 13, 2024 16:29
[2024-04-13] MEDS ORDERED: hydrALAZINE HCL 20 MG/ML VL IV PRN (16:30)
--- NOTE | 2024-04-13 16:49 | DVHINCON2 ---
INTERNAL MEDICINE CONSULT HISTORY OF PRESENT ILLNESS: The patient is a 23-year-old lady who I was consulted on because of elevated blood pressure. The patient complains of occasional headaches. No nausea or vomiting. No shortness of breath. Review of rest of systems are otherwise currently negative. The patient recently gave . She had care done in [place]. PAST MEDICAL HISTORY: Significant for hypertension, when she was a child. MEDICATIONS: Antihypertensive on a regular basis. ALLERGIES: No known drug allergies. SOCIAL HISTORY: Denies smoking or alcohol. FAMILY HISTORY: Negative. PHYSICAL EXAMINATION: GENERAL: The patient is awake, alert. VITAL SIGNS: Temperature 98.5, pulse 82 per minute, blood pressure 160/105. SHEENT: Unremarkable. NECK: There is no JVD, no pedal edema. LUNGS: Equal bilaterally. No added sounds. CARDIOVASCULAR SYSTEM: S1, S2 is regular, no murmurs. ABDOMEN: Soft. Bowel sounds are present. NEUROLOGIC: Nonfocal. MUSCULOSKELETAL: Normal. ASSESSMENT AND PLAN: * Hypertensive urgency. The patient's blood pressure medication will be adjusted. * Systemic inflammatory response syndrome, questionably secondary to recent delivery. * Status post . MD KENNY Sullivan/WINDY TID: [id number] RECEIPT: [id number]
[2024-04-13] MEDS: HYDROcodone-ACET 5/325MG TAB PO PRN (18:42)
[2024-04-14] VITALS (9 sets, daily range): BP systolic 122–147; BP diastolic 77–99; PULSE 92–105; RESP 17–19; TEMP 98–100.1; O2SAT 96–98
[2024-04-14 06:34] LABS: Eosinophils # (auto) 0.2 10 ^3/uL (0-0.8); Eosinophils % (auto) 2.4 % (0.0-7.0); Hemoglobin 10.3 g/dL (12.2-16.2); Lymphocytes # (auto) 2.2 10 ^3/uL (0.4-5.4); Monocytes # (auto) 0.6 10 ^3/uL (0-1.3)
[2024-04-14 06:36] LABS: Basophils # (auto) 0 10 ^3/uL (0-0.2); Basophils % (auto) 0.3 % (0.0-2.0); Hematocrit 32.2 % (36.0-46.0); Lymphocytes % (auto) 21.9 % (10.0-50.0); Mean Corpuscular Hemoglobin 28.2 pg (28.0-32.0); Mean Corpuscular Hgb Conc. 31.8 g/dL (32.0-36.0); Mean Corpuscular Volume 88.5 fL (80.0-100.0); Monocytes % (auto) 6.2 % (0.0-12.0); Neutrophils # (auto) 7.1 10 ^3/uL (1.6-8.6); Neutrophils % (auto) 69.2 % (37.0-80.0); Nucleated Red Blood Cells % 0.2 %; Platelet Count (auto) 502 10^3/uL (140-450); Red Blood Cells 3.64 10^6/uL (4.0-5.20); Red Cell Distribution Width 16.1 % (11.8-14.3); White Blood Cell 10.3 10^3/uL (4.4-10.8)
[2024-04-14 06:41] LABS: Chloride 105 mmol/L (98-107); Potassium 3.9 mmol/L (3.5-5.1); Sodium 138 mmol/L (136-145)
[2024-04-14 06:42] LABS: Anion Gap 10 (5-15); Carbon Dioxide 23 mmol/L (20-31)
[2024-04-14 06:43] LABS: Calcium 9.8 mg/dL (8.7-10.4)
[2024-04-14 06:47] LABS: BUN/Creatinine Ratio 13.5 (10.0-20.0); Glucose 83 mg/dL (74-106)
[2024-04-14 06:48] LABS: Blood Urea Nitrogen 7 mg/dL (9-23)
[2024-04-14] MEDS: NIFEdipine ER 30 MG TAB PO SCH (09:50)
--- NOTE | 2024-04-14 10:56 | DVHPN2 ---
Progress Note Date Seen: Apr 14, 2024 Medical Necessity Reason Pt with a Central, PICC or Fol: No Subjective Patient reports: No new complaints Review of Systems: HEENT:Normal, CVS:Normal, RESPIRATORY:Normal, GI:Normal, :Normal, MSK:Normal, NEURO:Normal Objective vital signs Vital Sign Date Time Temp Pulse Resp B/P (MAP) Pulse Ox O2 Delivery O2 Flow Rate FiO2 04/14/24 09:50 151/103 04/14/24 09:49 94 04/14/24 09:00 98.2 18 98 98.2 04/14/24 07:45 Room Air* 0 21 medications Current Medications Medications Dose Ordered Sig/Yumiko Route Start Time Stop Time Status Last Admin Dose Admin Witcynthia Ember 1 pad PRN PRN TOP 04/09/24 12:45 Sodium Lauryl Sulfate 240 ml PRN PRN TOP 04/09/24 12:45 Benzocaine 1 applic PRN PRN TOP 04/09/24 12:45 Docusate Sodium 100 mg Q12HR PO 04/10/24 22:00 04/14/24 09:49 100 MG Dimethicone 80 mg QID PO 04/10/24 18:00 04/14/24 05:33 80 MG Ibuprofen 800 mg Q8HP PRN PO 04/10/24 13:15 04/12/24 14:27 800 MG Acetaminophen/ Hydrocodone Bitart 1 tab Q4HPRN PRN PO 04/10/24 13:15 04/14/24 05:33 1 TAB Acetaminophen/ Hydrocodone Bitart 2 tab Q4HPRN PRN PO 04/10/24 13:15 04/13/24 10:21 2 TAB Ferrous Sulfate 325 mg BIDWM PO 04/11/24 11:00 04/14/24 09:52 325 MG Labetalol HCl 400 mg BID PO 04/13/24 22:00 04/14/24 09:49 400 MG Nifedipine 60 mg DAILY PO 04/14/24 10:00 04/14/24 09:50 60 MG Hydralazine HCl 10 mg Q6HP PRN IV 04/13/24 16:30 Examination: GENERAL:Normal, HEENT:Normal, NECK:Normal, LUNGS:Normal, CVS:Normal, ABDOMEN:Normal, ABDOMEN:Abnormal (c section), MSK:Normal, SKIN:Normal, NEURO:Normal, :Normal laboratory and microbiology Laboratory Tests 04/14/24 05:49 Test 04/14/24 05:49 Range/Units Serum Glucose 83 74-106 mg/dL Problem List/Assessment/Plan Problem List/Assessment/Plan * Hypertensive urgency. The patient's blood pressure medication will be adjusted. * Systemic inflammatory response syndrome, questionably secondary to recent delivery. * Status post . Plan discussed with: Patient My Orders My Orders Orders - KAY GUTIERREZ MD Procedure Category Date Status Time Labetalol Hcl Tablet PHA 04/13/24 In Process (Normodyne Tablet) 22:00 Nifedipine Er PHA 04/14/24 In Process (Procardia Xl 10:00 Hydralazine Injection PHA 04/13/24 In Process (Apresoline Inject 16:30 Transfer Orders XFER 04/13/24 Transmitted 16:55 Labetalol Hcl Tablet PHA 04/14/24 Verified (Normodyne Tablet) 14:00 Date of Service: Apr 14, 2024 Billing Provider: KAY GUTIERREZ MD Common Visit Codes: [id number] INP/OBS CARE(HIGH) KAY GUTIERREZ MD Apr 14, 2024 10:56
--- NOTE | 2024-04-14 11:17 | DVHPN2 ---
Chief Complaints Patient reports: No new complaints Nursing reports: No new complaints Objective Vitals Vital Signs Date Time Temp Pulse Resp B/P (MAP) Pulse Ox O2 Delivery O2 Flow Rate FiO2 04/14/24 09:50 151/103 04/14/24 09:49 94 04/14/24 09:00 98.2 18 98 98.2 04/13/24 20:00 Room Air* 0 21 Medications Current Medications Medications (Trade) Dose Ordered Sig/Yumiko Route PRN Reason Start Time Stop Time Status Last Admin Hydralazine HCl (Apresoline Injection) 10 mg Q6HP PRN IV SBP>150 04/13/24 16:30 Labetalol HCl (Normodyne Tablet) 400 mg BID PO 04/13/24 22:00 04/14/24 09:49 Nifedipine (Procardia Xl (Time-Release)) 60 mg DAILY PO 04/14/24 10:00 04/14/24 09:50 Others ve -no bleeding Studies Laboratory Tests 04/14/24 05:49 Test 04/14/24 05:49 Range/Units Serum Glucose 83 74-106 mg/dL Ass/Plan Assessment s/p cs Plan bp being adjusted supportive care Visit Coding OBGYN Date of Service: Apr 14, 2024 Billing Provider: GAUTAM SWANSON DO [employer]ILD[employer] SUPERVISOR Common Visit Codes: [id number] INP/OBS CARE(HIGH) GAUTAM SWANSON DO Apr 14, 2024 11:17
[2024-04-14] MEDS: LABETALOL HCL 200 MG TAB PO SCH (15:05)
[2024-04-15 00:48] VITALS: BP 128/89; PULSE 106; RESP 18; TEMP 98.3; O2SAT 98
[2024-04-15 05:00] VITALS: BP 137/86; PULSE 83; RESP 18; TEMP 98.4; O2SAT 98
[2024-04-15 08:00] VITALS: PULSE 91
[2024-04-15 09:02] VITALS: BP 128/80; PULSE 94; RESP 16; TEMP 98.2; O2SAT 96
[2024-04-15 12:08] VITALS: BP 141/95; PULSE 86; RESP 16; TEMP 98; O2SAT 99
[2024-04-15] MEDS ORDERED: LABE200T33 PO (13:56)
[2024-04-15] MEDS ORDERED: NIFE1TAB30 PO (13:56)
--- NOTE | 2024-04-15 13:59 | DVHDS2 ---
Discharge Summary Date of Admission Apr 09, 2024 at 12:02 Date of Discharge: Apr 15, 2024 Labs/Diagnostic Data: Laboratory Results Test 04/14/24 05:49 04/12/24 17:01 04/10/24 06:03 04/09/24 12:40 White Blood Count 10.3 10^3/uL (4.4-10.8) Red Blood Count 3.64 10^6/uL (4.0-5.20) Hemoglobin 10.3 g/dL (12.2-16.2) Hematocrit 32.2 % (36.0-46.0) Mean Corpuscular Volume 88.5 fL (80.0-100.0) Mean Corpuscular Hemoglobin 28.2 pg (28.0-32.0) Mean Corpuscular Hemoglobin Concent 31.8 g/dL (32.0-36.0) Red Cell Distribution Width 16.1 % (11.8-14.3) Platelet Count 502 10^3/uL (140-450) Mean Platelet Volume 6.8 fL (6.9-10.8) Neutrophils (%) (Auto) 69.2 % (37.0-80.0) Lymphocytes (%) (Auto) 21.9 % (10.0-50.0) Monocytes (%) (Auto) 6.2 % (0.0-12.0) Eosinophils (%) (Auto) 2.4 % (0.0-7.0) Basophils (%) (Auto) 0.3 % (0.0-2.0) Neutrophils # (Auto) 7.1 10 ^3/uL (1.6-8.6) Lymphocytes # (Auto) 2.2 10 ^3/uL (0.4-5.4) Monocytes # (Auto) 0.6 10 ^3/uL (0-1.3) Eosinophils # (Auto) 0.2 10 ^3/uL (0-0.8) Basophils # (Auto) 0 10 ^3/uL (0-0.2) Nucleated Red Blood Cells 0.2 % Sodium Level 138 mmol/L (136-145) Potassium Level 3.9 mmol/L (3.5-5.1) Chloride Level 105 mmol/L (98-107) Carbon Dioxide Level 23 mmol/L (20-31) Anion Gap 10 (5-15) Blood Urea Nitrogen 7 mg/dL (9-23) Creatinine 0.52 mg/dL (0.550-1.02) Glomerular Filtration Rate Calc 133 mL/min (>90) BUN/Creatinine Ratio 13.5 (10.0-20.0) Serum Glucose 83 mg/dL (74-106) Calcium Level 9.8 mg/dL (8.7-10.4) Total Bilirubin 0.7 mg/dL (0.2-1.0) Aspartate Amino Transferase (AST) 20 U/L (13-40) Alanine Aminotransferase (ALT) 10 U/L (7-40) Alkaline Phosphatase 167 U/L (46-116) Total Protein 6.7 g/dL (5.7-8.2) Albumin 4.1 g/dL (3.2-4.8) Magnesium Lvl (Mg Sulfate Therapy) 5.59 mg/dL (4.0-7.1) Prothrombin Time 9.8 sec (9.3-11.8) Prothrombin Time INR 0.92 (0.9-1.15) Activated Partial Thromboplast Time 27.6 SEC (24.5-34.5) Urine Color Colorless (Yellow) Urine Clarity Turbid (Clear) Urine pH 6.5 (5.0-9.0) Urine Specific [place] 1.007 (1.001-1.035) Urine Protein Negative (Negative) Urine Ketones Negative (Negative) Urine Blood Negative /uL (Negative) Urine Nitrite Negative (Negative) Urine Bilirubin Negative (Negative) Urine Urobilinogen Normal mg/dL (Negative) Urine Leukocyte Esterase Negative /uL (Negative) Urine RBC 1 /hpf (0 - 4) Urine Microscopic WBC 3 /HPF (0-5) Urine Squamous Epithelial Cells Mod /hpf (<5) Urine Bacteria Mod /hpf (None Seen) Urine Yeast (Budding) Occasional /hpf (None Urine Creatinine 53.61 mg/dL (30.0-125.0) Urine Protein/Creatinine Ratio 0.35 Urine Glucose Normal mg/dL (Normal) Urine Total Protein 18.5 mg/dL (1-14) Uric Acid 3.5 mg/dL (3.1-7.8) Urine Opiates Screen Neg (NEGATIVE) Urine Fentanyl Screen Neg (NEGATIVE) Urine Barbiturates Screen Neg (NEGATIVE) Urine Phencyclidine Screen Neg (NEGATIVE) Urine Amphetamines Screen Neg (NEGATIVE) Urine Benzodiazepines Screen Neg (NEGATIVE) Urine Cocaine Screen Neg (NEGATIVE) Urine Cannabinoids Screen Neg (NEGATIVE) Rapid Plasma Reagin Non reactive (Non Reactive) Hepatitis B Surface Antigen Negative (Negative) Hepatitis C Antibody Negative (Negative) HIV (1&2) Antibody Negative (Negative) Rubella IgG Antibody 2.07 index (Immune >0.99) Other Laboratory Tests 04/14/24 05:49 Brief Hx & Hospital Course: see dictated note Condition at Discharge: Fair Final Diagnosis/Problems List HTN Discharge Disposition: Home Discharge Instruct/Medications Diet: Regular Activity: Light activity Activity comment: Pelvic rest x 6 wk Follow Up/Referral: [address] Malave Medications: SCRIPT TO PHARMACY Discharge Statement: "Patient was advised to return to the ER or call 911 if any headaches, dizziness, shortness of breath, chest pain, abdominal pain, bleeding, fevers, or worsening of medical condition. Patient was counseled about treatment plan, medications, possible side effects, patientverbalized understanding. All questions were answered to the best of my ability. This discharge took greater then 30 minutes in planning, reviewing documentation, counseling the patient, and discussing with other team members." ASSESSMENT ASSESSMENT Assessment HTN Date of Service: Apr 15, 2024 Billing Provider: KAY GUTIERREZ MD Common Visit Codes: [id number] DISCH DAY >30min KAY GUTIERREZ MD Apr 15, 2024 13:59
--- NOTE | 2024-04-15 14:04 | DVHDS ---
DATE OF DISCHARGE: 04/15/2024 The patient is a 23-year-old lady who was initially admitted for delivery and underwent a . The patient subsequently was noted to have elevated blood pressure and was transferred to my service. HOSPITAL COURSE: The patient was started on treatment with labetalol 400 mg t.i.d. along with nifedipine 600 mg daily. The patient's blood pressure is now under control. Her BNP has been normal at discharge as well as her CBC. The patient has been instructed to monitor blood pressure at home and have a proper followup with the primary as well as OB. She will now be discharged home to be on labetalol 400 mg t.i.d. along with nifedipine ER 60 mg daily. She will follow up with the primary and OB in the next one to two weeks. FINAL DIAGNOSES: * Hypertensive urgency. * Systemic inflammatory response syndrome likely secondary to recent delivery. * Status post section Time spent in discharge planning and review of plan with the patient and nursing was 37 minutes. MD KENNY Sullivan/ZION TID: [id number] RECEIPT: [id number]
[2024-04-15 17:14] VITALS: BP 133/85; PULSE 86; RESP 16; TEMP 98.3; O2SAT 98
== END 2024-04-15 19:16 | disposition home or self-care (01) | DRG 540 ==
LOC: LDRP 12:02 → OBSVTOIN 12:02 → TELE-EAST 04-13 19:26
PROVIDERS: ADMIT Internal Medicine; ATTEND Internal Medicine
PROC: 10D00Z1 Extraction of Products of Conception, Low, Open Approach (ICD-10-PCS; principal; 2024-04-09 13:35)
DX: O14.14 Severe pre-eclampsia complicating childbirth (principal); R65.10 Systemic inflammatory response syndrome (SIRS) of non-infectious origin without acute organ dysfunction; O99.12 Other diseases of the blood and blood-forming organs and certain disorders involving the immune mechanism complicating childbirth; O99.02 Anemia complicating childbirth; I16.0 Hypertensive urgency; Z3A.39 39 weeks gestation of pregnancy; Z37.0 Single live birth
CPT/HCPCS: 36415; 59025; 80048; 80053; 80307; 81001; 81002; 82570; 83735; 84156; 84550; 85025; 85610; 85730; 86592; 86703; 86762; 86803; 86850; 86900; 86901; 87340; 94760; 94762; 96360; 96361; 96365; 96366; 96374; 96375; G0378; J0131; J0690; J1756; J1885; J2405; J2590